=== PATIENT | female | born 1955 | race Caucasian/White ===

== ENCOUNTER 2017-01-19 08:31 | Emergency (ER) | payer MEDICAID ==
[~2017-01-19] VITALS: Ht 157.5 cm; Wt 81.2 kg
[2017-01-19 11:30] VITALS: BP 142/79
== END 2017-01-19 11:30 | disposition home or self-care (01) ==
LOC: ED 08:31
DX: R10.13 Epigastric pain (principal); E66.9 Obesity, unspecified; I10 Essential (primary) hypertension; Z87.19 Personal history of other diseases of the digestive system
CPT/HCPCS: J1885